=== PATIENT | female | born 1945 | race Caucasian/White ===

== ENCOUNTER 2020-12-17 15:29 | Emergency (ER) | payer MEDICARE ==
[~2020-12-17] VITALS: Ht 165.1 cm; Wt 90.7 kg
[2020-12-17] MEDS ORDERED: IV NORMAL SALINE 500 ML BAG IV ONE (16:00)
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
[2020-12-17 16:14] LABS: HEMATOCRIT 38.7 % (31.2-41.9); MEAN CORPUSCULAR HEMOGLOBIN 31.1 uug (24.7-32.8); MEAN CORPUSCULAR VOLUME 91.9 fL (75.5-95.3); PLATELET COUNT (AUTO) 197 K/uL (179-408)
[2020-12-17 16:20] LABS: CREATININE 0.8 mg/dL (0.6-1.3); POTASSIUM 4.1 mmol/L (3.5-5.1)
--- NOTE | 2020-12-17 16:44 | NUR ---
IV removed. Catheter intact and site benign. Pressure and 4x4 gauze applied to site. No bleeding noted.
[2020-12-17 17:01] VITALS: BP 155/77
--- NOTE | 2020-12-17 17:01 | NUR ---
Patient discharged to home in stable condition with taking patient home. Written and verbal after care instructions given. Patient verbalizes understanding of instructions. Stressed follow up or return to ER for worsening s/s.
== END 2020-12-17 17:02 | disposition home or self-care (01) ==
LOC: ER 15:29
DX: Z04.1 Encounter for examination and observation following transport accident (principal); I10 Essential (primary) hypertension; G47.33 Obstructive sleep apnea (adult) (pediatric)
CPT/HCPCS: 36415; 70030-TC; 71045; 85025; 93005; A4663; J7040